=== PATIENT | female | born 1955 | race Caucasian/White ===

== ENCOUNTER 2017-05-05 08:00 | Emergency (ER) | payer OTHER ==
[~2017-05-05] VITALS: Ht 160 cm; Wt 84.1 kg
[~2017-05-05 08:00] MED LIST: AMOX TR-K CLV1 EAC4 PO; ERGOCALCIF50000 UNIT PO; FLEXERIL10 MG PO; HYDROCHLOROTHIA25 MG PO; KLOR-CON M1010 MEQ PO; LORATADINE10 M2 PO; PROAIR HFA8.5 GM IH; SERTRALINE HCL25 MG PO
[2017-05-05 09:37] LABS: HEMATOCRIT 45.6 % (36.0-46.0); MCH 31.5 PG (29.0-34.0); MCHC 34.4 G/DL (30.0-36.0); MEAN PLAT.VOLUME 10.1 uM^3 (9.5-12.4); PLATELET COUNT 143 K/uL (156-360); RBC DIS.WIDTH-CV 12.4 % (11.8-14.6); RBC DIS.WIDTH-SD 41.9 % (39-53); RED BLOOD COUNT 4.99 M/uL (3.80-5.20); WHITE BLOOD COUNT 5.7 K/uL (4.1-10.2)
[2017-05-05 09:39] LABS: MCV 91.4 FL (83-99)
[2017-05-05 09:48] LABS: CHLORIDE 100 mEq/L (99-109); POTASSIUM 3.4 mEq/L (3.7-5.4); SODIUM 136 mEq/L (136-147)
[2017-05-05 09:50] LABS: GLUCOSE 104 mg/dL (70-99)
[2017-05-05 09:51] LABS: ANION GAP 13 MEQ/L (2-14)
[2017-05-05 09:52] LABS: TOTAL BILIRUBIN 0.4 mg/dL (0.0-1.0)
[2017-05-05 09:54] LABS: ALKALINE PHOSPHATASE 109 IU/L (3-129); GFR ESTIMATE (CALCULATED) > 59 mL/min/
[2017-05-05 09:55] LABS: UREA NITROGEN (BUN) 24 mg/dL (9-23)
[2017-05-05 12:37] LABS: ADD MIUA? YES; BILIRUBIN NEGATIVE; BLOOD NEGATIVE; COLOR YELLOW ((YELLOW)); GLUCOSE (STRIP) NEGATIVE; KETONES NEGATIVE; LEUKOCYTES TRACE; NITRITE NEGATIVE; PROTEIN (STRIP) NEGATIVE; SPECIFIC GRAVITY 1.024 (1.000-1.030); UROBILINOGEN 0.2 MG/DL (0.2-1.0)
[2017-05-05] MEDS ORDERED: FIORICET,ESG1 TABLET PO (14:01)
[2017-05-05 14:10] LABS: BACTERIA RARE /HPF; EPITHELIAL CELLS RARE /HPF; MUCUS 1+ /LPF; RED BLOOD CELLS 0-5 /HPF (0-5); UCUL ADDED? NO; WHITE BLOOD CELLS 0-5 /HPF (0-5)
[2017-05-05 14:21] VITALS: BP 115/79
== END 2017-05-05 14:22 | disposition home or self-care (01) ==
LOC: EME 08:00
DX: R51 Headache (principal); A69.20 Lyme disease, unspecified; K21.9 Gastro-esophageal reflux disease without esophagitis; Z85.038 Personal history of other malignant neoplasm of large intestine; Z90.49 Acquired absence of other specified parts of digestive tract
CPT/HCPCS: 80053; 81003; 85027; 93005; 99281; 99285